=== PATIENT | male | born 1940 | race Caucasian/White ===

== ENCOUNTER → 2016-08-18 | Outpatient (CLI) | payer MEDICARE, OTHER ==
[~2016-08-18] MED LIST: ACULAR OPHTH DR10 ML OP; AVINZA60 MG PO; CENTRUM SILVER1 TA1 PO; DILAUDID 2MG TAB2 MG PO; K + POTASSIUM20 MEQ PO; LASIX40 MG PO; MS CONTIN15 MG PO; NEXIUM 40MG40 MG PO; OCUFLOX 10 ML10 ML OP; PRED FORTE 1 ML1 ML OP; TEARS NATURALE15 M1 OP; TOPCARE ASPIRIN81 M1 PO; ULTRAM100 MG PO
== END ==
LOC: COL.RAD 11:29
DX: M54.2 Cervicalgia (principal); M25.78 Osteophyte, vertebrae; E04.9 Nontoxic goiter, unspecified

== ENCOUNTER → 2016-09-23 | Outpatient (CLI) | payer MEDICARE, OTHER | LOC: COL.RAD 13:44 | DX: E01.0 Iodine-deficiency related diffuse (endemic) goiter (principal) ==

== ENCOUNTER → 2017-05-26 | Outpatient (CLI) | payer MEDICARE, OTHER | LOC: COL.RAD 07:30 | DX: Z13.6 Encounter for screening for cardiovascular disorders (principal); Z87.891 Personal history of nicotine dependence ==

== ENCOUNTER → 2017-06-17 | Outpatient (CLI) | payer MEDICARE, OTHER | LOC: COL.LAB 17:15 | DX: Z01.812 Encounter for preprocedural laboratory examination (principal); J34.2 Deviated nasal septum ==

== ENCOUNTER → 2018-05-03 | Outpatient (CLI) | payer MEDICARE, OTHER | LOC: COL.VAS 04-27 09:00 | DX: M79.605 Pain in left leg (principal) ==

== ENCOUNTER 2019-06-28 14:52 | Emergency (ER) | payer MEDICARE, OTHER ==
[~2019-06-28] VITALS: Ht 177.8 cm; Wt 73.6 kg
[2019-06-28 15:33] VITALS: TEMP 98.4
[2019-06-28] MEDS ORDERED: BACTRIM DS 8001 TAB PO (17:09)
[2019-06-28 17:21] VITALS: BP 110/69; PULSE 68
== END 2019-06-28 17:21 | disposition home or self-care (01) ==
LOC: COL.ER 14:52
DX: S62.637B Displaced fracture of distal phalanx of left little finger, initial encounter for open fracture (principal); Z87.891 Personal history of nicotine dependence; W23.0XXA Caught, crushed, jammed, or pinched between moving objects, initial encounter
CPT/HCPCS: J2270

== ENCOUNTER 2019-09-14 10:30 | Outpatient (RCR) | payer MEDICARE, OTHER ==
[~2019-09-14 10:30] MED LIST changes: +BACTRIM DS 8001 TAB PO
== END 2019-11-08 | disposition home or self-care (01) ==
LOC: MKS.ESL.OT
DX: Z89.022 Acquired absence of left finger(s) (principal)

== ENCOUNTER → 2020-01-18 | Outpatient (CLI) | payer MEDICARE, OTHER | LOC: COL.CARD 12:36 | DX: R00.1 Bradycardia, unspecified (principal) ==

== ENCOUNTER 2020-01-22 15:45 | Outpatient (RCR) | payer MEDICARE, OTHER | END 2020-04-14 | disposition home or self-care (01) | LOC: MKS.ESL.PT | DX: Z51.81 Encounter for therapeutic drug level monitoring (principal); M79.604 Pain in right leg; M79.605 Pain in left leg; G62.9 Polyneuropathy, unspecified ==

== ENCOUNTER 2020-01-22 15:45 | Outpatient (RCR) | payer MEDICARE, OTHER | END 2020-04-15 | disposition home or self-care (01) | LOC: MKS.ESL.PT | DX: G62.9 Polyneuropathy, unspecified (principal) ==

== ENCOUNTER 2020-10-03 13:05 | Outpatient (CLI) | payer MEDICARE, OTHER ==
--- NOTE | 2020-09-29 10:20 | NUR ---
LMOM WITH CALL BACK NUMBER. LET INSTRUCTIONS AND REQUESTED THEY NOT TAKE NSAIDS.
[~2020-10-03] VITALS: Ht 177.8 cm; Wt 81.7 kg
[2020-10-03] VITALS (8 sets, daily range): BP systolic 117–132; BP diastolic 52–78; PULSE 52–62
[~2020-10-03 13:05] MED LIST changes: +MOTRIN 800800 MG/TAB PO; +POTASSIUM
[2020-10-03] MEDS ORDERED: LASIX 20MG TABL20 MG PO (13:14)
[2020-10-03] MEDS ORDERED: K-DUR 10 MEQ T10 MEQ (13:16)
[2020-10-03] MEDS ORDERED: AVINZA60 MG PO (13:16)
[2020-10-03] MEDS ORDERED: FORTESTA10 MG/0.5 TP (13:17)
[2020-10-03] MEDS ORDERED: MORPHINE 1515 MG/TAB PO (13:18)
[2020-10-03] MEDS ORDERED: PROTONIX20 MG (13:19)
[2020-10-03] MEDS ORDERED: ONE-A-DAY ESSE1 EACH PO (13:20)
[2020-10-03] MEDS ORDERED: NEURONTIN300 MG/CAP PO (13:21)
--- NOTE | 2020-10-03 14:45 | NUR ---
Report from Gloria LU. Lew to low back CD&I. Pt denies pain at this time. VSS
--- NOTE | 2020-10-03 15:55 | NUR ---
VSS. Discharge instructions given . Transferred to private car by enoc
== END 2020-10-03 16:00 | disposition home or self-care (01) ==
LOC: COL.RAD 13:05
DX: M48.02 Spinal stenosis, cervical region (principal); M47.812 Spondylosis without myelopathy or radiculopathy, cervical region; G95.89 Other specified diseases of spinal cord
CPT/HCPCS: Q9967

== ENCOUNTER → 2021-06-08 | Outpatient (CLI) | payer MEDICARE, OTHER ==
[~2021-06-08] MED LIST changes: +FORTESTA10 MG/0.5 TP; +K-DUR 10 MEQ T10 MEQ; +LASIX 20MG TABL20 MG PO; +MORPHINE 1515 MG/TAB PO; +NEURONTIN300 MG/CAP PO; +ONE-A-DAY ESSE1 EACH PO; +PROTONIX20 MG
== END ==
LOC: COL.RAD 11:53
DX: M51.36 Other intervertebral disc degeneration, lumbar region (principal); M41.83 Other forms of scoliosis, cervicothoracic region; M41.85 Other forms of scoliosis, thoracolumbar region

== ENCOUNTER 2022-01-03 14:54 | Emergency (ER) | payer MEDICARE, OTHER ==
[~2022-01-03] VITALS: Ht 172.7 cm; Wt 73.6 kg
[~2022-01-03 14:54] MED LIST changes: +ADVIL200 MG PO; -K-DUR 10 MEQ T10 MEQ; +K-DUR20 MEQ PO; +LASIX 40MG TABL40 MG PO; +NEURONTIN100 MG/CAP PO; +PROTONIX 40MG T40 MG PO; +TYLENOL 325MG325 MG PO
[2022-01-03 15:07] VITALS: TEMP 98.4
[2022-01-03 16:17] LABS: BASO % 0.2 % (0.0-2.0); EOS # 0.1 K/mm3 (0.0-0.7); EOS % 0.4 % (0.0-4.0); GRAN # 10.2 K/mm3 (1.4-6.5); GRAN % 77.9 % (42.2-75.2); HEMATOCRIT 40.6 % (42.0-52.0); HEMOGLOBIN 13.5 g/dl (13.5-18.0); LYMPH # 1.4 K/mm3 (1.2-3.4); LYMPH % 10.6 % (20.0-51.0); MEAN CELL VOLUME 94 fl (80.0-100.0); MEAN CORPUSCULAR HEMOGLOBIN 31 pg (27-31); MEAN CORPUSCULAR HGB CONC 33 g/dl (33.0-37.0); MEAN PLATELET VOLUME 10.4 fl (7.4-10.4); MONO # 1.4 K/mm3 (0.1-0.6); MONO % 10.4 % (1.7-9.3); PLATELET COUNT 253 K/mm3 (130-400); RED BLOOD COUNT 4.34 M/mm3 (4.20-5.60); REDCELL DISTRIBUTION WIDTH-CV 12.2 % (11.5-14.5)
[2022-01-03 16:28] LABS: ALANINE AMINOTRANSFERASE 31 U/L (0-55); ALKALINE PHOSPHATASE 75 U/L (40-150); ANION GAP 11 mmol/L (7-16); AST,SGOT 22 U/L (5-34); BILIRUBIN,TOTAL 0.5 mg/dL (0.2-1.2); BLOOD UREA NITROGEN 13 mg/dL (8-26); CALCIUM 8.8 mg/dL (8.4-10.2); CARBON DIOXIDE 21 mmol/L (23-31); CHLORIDE 108 mmol/L (98-107); CREATININE, serum 0.94 mg/dL (0.72-1.25); GLUCOSE 145 mg/dL (70-99); POTASSIUM 3.9 mmol/L (3.5-4.5); SODIUM 140 mmol/L (136-145); TOTAL PROTEIN 6.8 gm/dL (6.2-8.1)
[2022-01-03 16:34] LABS: TROPONIN-I < 0.010 ng/mL (0.00-0.033)
[2022-01-03] MEDS ORDERED: DOXYCYCLINE 10100 MG PO (16:58)
[2022-01-03 17:08] VITALS: BP 120/47; PULSE 76
== END 2022-01-03 17:24 | disposition home or self-care (01) ==
LOC: COL.ER 14:54
PROVIDERS: Emergency Medicine
DX: U07.1 COVID-19 (principal); D72.829 Elevated white blood cell count, unspecified; Z87.891 Personal history of nicotine dependence
CPT/HCPCS: J7120

== ENCOUNTER 2022-01-10 13:27 | Emergency (ER) | payer MEDICARE, OTHER ==
[~2022-01-10 13:27] MED LIST changes: +DOXYCYCLINE 10100 MG PO
== END 2022-01-10 14:07 | disposition left against medical advice (07) ==
LOC: COL.ER 13:27
DX: R69 Illness, unspecified (principal)

== ENCOUNTER → 2022-01-11 | Outpatient (CLI) | payer MEDICARE, OTHER ==
[2022-01-11 17:31] LABS: BASO % 0.4 % (0.0-2.0); EOS # 0.3 K/mm3 (0.0-0.7); EOS % 2.4 % (0.0-4.0); GRAN # 6.4 K/mm3 (1.4-6.5); HEMATOCRIT 44.5 % (42.0-52.0); HEMOGLOBIN 14.2 g/dl (13.5-18.0); LYMPH # 2.7 K/mm3 (1.2-3.4); LYMPH % 25.9 % (20.0-51.0); MEAN CELL VOLUME 95 fl (80.0-100.0); MEAN CORPUSCULAR HEMOGLOBIN 30 pg (27-31); MEAN CORPUSCULAR HGB CONC 32 g/dl (33.0-37.0); MEAN PLATELET VOLUME 10.5 fl (7.4-10.4); MONO # 1.1 K/mm3 (0.1-0.6); MONO % 10.4 % (1.7-9.3); PLATELET COUNT 441 K/mm3 (130-400); RED BLOOD COUNT 4.69 M/mm3 (4.20-5.60); REDCELL DISTRIBUTION WIDTH-CV 12.4 % (11.5-14.5)
[2022-01-11 17:45] LABS: ALBUMIN 3.1 gm/dL (3.4-4.8); BILIRUBIN,TOTAL 0.4 mg/dL (0.2-1.2); C-REACTIVE PROTEIN 3.64 mg/dL (0.00-0.50); CALCIUM 9.4 mg/dL (8.4-10.2); CREATININE, serum 1.12 mg/dL (0.72-1.25); POTASSIUM 4.5 mmol/L (3.5-4.5); TOTAL PROTEIN 8.1 gm/dL (6.2-8.1)
[2022-01-11 18:07] LABS: ERYTHROCYTE SEDIMENTATION RATE 29 mm/hr (0-30)
== END ==
LOC: COL.LAB 17:05
PROVIDERS: Internal Medicine
DX: J18.9 Pneumonia, unspecified organism (principal); R79.89 Other specified abnormal findings of blood chemistry

== ENCOUNTER 2022-07-28 07:16 | Outpatient (CLI) | payer MEDICARE, OTHER ==
[~2022-07-28] VITALS: Ht 172.7 cm; Wt 72.6 kg
[2022-07-28] MEDS ORDERED: LASIX 80MG TABL80 MG PO (07:39)
[2022-07-28 07:43] VITALS: BP 126/71; PULSE 78; TEMP 98.1
--- NOTE | 2022-07-28 08:11 | NUR ---
pt leaves with rad staff
[2022-07-28 09:02] VITALS: BP 124/62; PULSE 75
[2022-07-28 09:15] VITALS: BP 137/74; PULSE 82
[2022-07-28 09:30] VITALS: BP 122/61; PULSE 73
[2022-07-28 09:45] VITALS: BP 121/74; PULSE 93
[2022-07-28 10:00] VITALS: BP 121/64; PULSE 68
--- NOTE | 2022-07-28 10:31 | NUR ---
Discharge instructions given to pt.Pt verbalizes understanding.pt escorted out via wheelchair by this nurse.
== END 2022-07-28 10:37 ==
LOC: COL.RAD 07:16
DX: M48.03 Spinal stenosis, cervicothoracic region (principal); M50.321 Other cervical disc degeneration at C4-C5 level; M51.24 Other intervertebral disc displacement, thoracic region; M51.36 Other intervertebral disc degeneration, lumbar region; M48.05 Spinal stenosis, thoracolumbar region; Z98.890 Other specified postprocedural states
CPT/HCPCS: Q9967

== ENCOUNTER → 2022-08-10 | Outpatient (CLI) | payer MEDICARE, OTHER ==
[~2022-08-10] MED LIST changes: +LASIX 80MG TABL80 MG PO
== END ==
LOC: MHCPAIN 14:03
DX: M48.02 Spinal stenosis, cervical region (principal); M54.2 Cervicalgia; M54.16 Radiculopathy, lumbar region
CPT/HCPCS: G0463

== ENCOUNTER → 2022-08-12 | Outpatient (CLI) | payer MEDICARE, OTHER | LOC: MHCPAIN 14:55 | DX: M51.16 Intervertebral disc disorders with radiculopathy, lumbar region (principal); Z98.890 Other specified postprocedural states | CPT/HCPCS: J1100; Q9967 ==

== ENCOUNTER 2023-02-16 14:30 | Outpatient (RCR) | payer MEDICARE, OTHER ==
[~2023-02-16 14:30] MED LIST changes: +ALLEGRA 180MG180 MG PO; +CALTRATE-600 W600 MG PO; +DULCOLAX STOOL100 MG PO; +FLONASEALLERGY NS; +FOLIC ACID 11 MG/TA1 PO; +FORTESTA10 MG/0.5 TOP; +LIDO35.4 TP; +MASON NATURAL2000 IU PO; +MS CONTIN 330 MG/TAB PO; +NARCAN4 MG NS; +OMNICEF 300MG300 MG PO; +THIAMINE 1100 MG/TAB PO; -TYLENOL 325MG325 MG PO; +TYLENOL 500MG500 MG PO; +VOLTAREN GEL 1%1 TU TP
== END 2023-02-17 | disposition home or self-care (01) ==
LOC: MKS.ESL.PT
DX: M54.50 Low back pain, unspecified (principal); Z98.1 Arthrodesis status; Z98.890 Other specified postprocedural states

== ENCOUNTER → 2023-03-03 | Outpatient (CLI) | payer MEDICARE, OTHER | LOC: MHCPAIN 14:11 | DX: M48.02 Spinal stenosis, cervical region (principal); M47.812 Spondylosis without myelopathy or radiculopathy, cervical region; M54.16 Radiculopathy, lumbar region; Z98.1 Arthrodesis status | CPT/HCPCS: G0463 ==

== ENCOUNTER → 2023-03-28 14:12 | Outpatient (RCR) | payer MEDICARE, OTHER | LOC: MKS.ESL.PT 03-20 14:30 | DX: Z98.1 Arthrodesis status (principal); Z98.890 Other specified postprocedural states ==

== ENCOUNTER → 2023-03-30 | Outpatient (CLI) | payer MEDICARE, OTHER | LOC: MHCPAIN 14:07 | DX: M47.897 Other spondylosis, lumbosacral region (principal); M54.16 Radiculopathy, lumbar region | CPT/HCPCS: G0463 ==

== ENCOUNTER → 2023-07-28 | Outpatient (CLI) | payer MEDICARE, OTHER ==
[~2023-07-28] MED LIST changes: +Iohexol 350 - 100 ML VIAL IV ONE; +NS 100 ML IV SCH
== END ==
LOC: COL.RAD 08:40
DX: I70.0 Atherosclerosis of aorta (principal); I70.293 Other atherosclerosis of native arteries of extremities, bilateral legs; M51.37 Other intervertebral disc degeneration, lumbosacral region; K45.8 Other specified abdominal hernia without obstruction or gangrene; G62.9 Polyneuropathy, unspecified
CPT/HCPCS: Q9967

== ENCOUNTER 2023-09-15 10:30 | Outpatient (RCR) | payer MEDICARE ==
[~2023-09-15 10:30] MED LIST changes: -Iohexol 350 - 100 ML VIAL IV ONE; -NS 100 ML IV SCH
== END 2023-09-18 | disposition home or self-care (01) ==
LOC: MKS.ESL.PT
DX: M51.37 Other intervertebral disc degeneration, lumbosacral region (principal); G62.9 Polyneuropathy, unspecified; G89.4 Chronic pain syndrome; M79.604 Pain in right leg; Z98.1 Arthrodesis status

== ENCOUNTER → 2024-02-09 | Outpatient (CLI) | payer MEDICARE | LOC: MHCPAIN 13:57 | DX: M48.02 Spinal stenosis, cervical region (principal); G57.32 Lesion of lateral popliteal nerve, left lower limb; Z98.1 Arthrodesis status | CPT/HCPCS: G0463 ==

== ENCOUNTER 2024-03-14 12:06 | Day surgery (SDC) | payer MEDICARE ==
[~2024-03-14] VITALS: Ht 175.3 cm; Wt 76.0 kg
--- NOTE | 2024-03-14 08:05 | NUR ---
IV WAS DISCONTINUED AND SITE IS FREE OF REDNESS. PATIENT IS ABLE TO SIT UP ON EDGE OF CART. NEEDS MUCH POSITIVE REINFORCEMENT TO MOVE. ENCOURAGED BREATHING TECHNIQUES TO ASSIST WITH LESS PAIN. SPOUSE REMAINS IN THE ROOM. ASSISTED WITH DRESSING. DISCHARGE INSTRUCTIONS GIVEN AND PATIENT AND SPOUSE BOTH VERBALIZE UNDERSTANDING OF THESE. PROVIDED FOLLOW UP APPOINTMENT DATE AND TIME.
[~2024-03-14 12:06] MED LIST changes: +Famotidine 20 MG TAB PO SCH; +LR 1,000 ML IV SCH
[2024-03-14] MEDS ORDERED: Lidocaine PF 2% (20 MG/ML) 5 ML VIAL ONE (12:41)
[2024-03-14] MEDS ORDERED: Ondansetron 4 MG/2 ML VIAL ONE (12:41)
[2024-03-14] MEDS ORDERED: NS 100 ML IV ONE (12:41)
[2024-03-14] MEDS ORDERED: dexAMETHasone 10 MG/ML VIAL ONE (12:41)
[2024-03-14] MEDS ORDERED: fentaNYL 50 MCG/ML 2 ML VIAL ONE ×2 (12:42→13:59)
[2024-03-14 12:43] VITALS: BP 118/63; PULSE 58; TEMP 97.6
[2024-03-14] MEDS ORDERED: PLAVIX 75MG TAB75 MG PO ×2 (12:46→13:27)
[2024-03-14] MEDS ORDERED: Rocuronium 50 MG/5 ML Multi-Dose VIAL ONE (12:47)
[2024-03-14] MEDS ORDERED: TOPROL XL 25MG25 MG PO (12:47)
--- NOTE | 2024-03-14 12:55 | NUR ---
Patient admitted to [facility] [place] 2. at bedside. VSS. Admission assessments completed. Consent signed. 18G IV insered into right wrist, LR infusing without difficulty. See EMAR for medications. Glasses on, removes hearing aides and has them. Pt did not bring medication list, completed med rec based of patient and wifes memory. Plavix has been held for 5 days. Cart in low position, call light within reach.
[2024-03-14] MEDS ORDERED: Ondansetron 4 MG/2 ML VIAL IV PRN ×2 (13:30→15:30)
[2024-03-14] MEDS ORDERED: oxyCODONE 5 MG TAB PO PRN (13:30)
[2024-03-14] MEDS ORDERED: Naloxone 0.4 MG/ML VIAL IV PRN (13:30)
[2024-03-14] MEDS ORDERED: Acetaminophen 500 MG TAB PO SCH (14:23)
[2024-03-14] MEDS ORDERED: Labetalol 100 MG/20 ML Multi-Dose VIAL ONE (14:54)
[2024-03-14] MEDS ORDERED: hydrALAZINE 20 MG/ML 1 ML VIAL ONE (14:55)
[2024-03-14] MEDS ORDERED: fentaNYL 50 MCG/ML 1 ML SYRINGE/VIAL [PACU/SDC ONLY] IV PRN (15:30)
[2024-03-14] MEDS ORDERED: Morphine 2 MG/1 ML VIAL [PACU/SDC ONLY] IV PRN (15:30)
[2024-03-14] MEDS ORDERED: HYDROmorphone 1 MG/1 ML SYRINGE [PACU/SDC ONLY] IV PRN (15:30)
[2024-03-14 16:40] VITALS: BP 155/60; PULSE 88; TEMP 99.3
--- NOTE | 2024-03-14 16:40 | NUR ---
PATIENT RETURNS TO ROOM 2 PER CART FROM PACU ACCOMPANIED BY PAULINA LU AND IS AWAKE AND ALERT. IVF INFUSING. ABDOMINAL BINDER IN PLACE. BANDAIDS X5 C/D/I ON ABDOMEN. SATS 95% ON 2L PER NC. SPOUSE IN ROOM. CALL LIGHT IN REACH. TAKING SIPS OF WATER AND ICE CHIPS. DENIES NAUSEA. STATES THAT HE IS HAVING SOME RIGHT SIDED FLANK PAIN. INSTRUCTED THAT ALL PAIN MEDICATIONS HAVE BEEN GIVEN AND ENCOURAGED TO REST.
[2024-03-14 16:55] VITALS: BP 141/66; PULSE 85; TEMP 99.3
--- NOTE | 2024-03-14 16:55 | NUR ---
RESTING WHEN NOT DISTURBED. SPOUSE IN ROOM.
[2024-03-14 17:10] VITALS: BP 155/60; PULSE 85
[2024-03-14 17:25] VITALS: BP 145/76; PULSE 86
--- NOTE | 2024-03-14 17:25 | NUR ---
RESTING AND TAKING SIPS OF PEPSI AND WATER. ABDOMINAL BINDER IN PLACE. BANDAIDS X5 DRY. ABLE TO VOID 300CC'S OF YELLOW URINE.
[2024-03-14 17:40] VITALS: BP 144/73; PULSE 81
--- NOTE | 2024-03-14 18:17 | NUR ---
PATIENT WAS DISCHARGED TO HOME DRIVEN BY SPOUSE PER PRIVATE VEHICLE AND TAKEN TO CAR PER WHEELCHAIR AND ASSISTED INTO VEHICLE BY THIS RN WITH INSTRUCTIONS IN HAND.
== END 2024-03-14 18:17 | disposition home or self-care (01) ==
LOC: SDCO 12:06
DX: K43.0 Incisional hernia with obstruction, without gangrene (principal); Z79.02 Long term (current) use of antithrombotics/antiplatelets
CPT/HCPCS: C1781; J0360; J0690; J1100; J1170; J1920; J2270; J2405; J2704; J2795; J3010; J7120